=== PATIENT | male | born 1955 | race Caucasian/White ===

== ENCOUNTER 2019-02-24 17:00 | Observation (INO) | payer BC ==
[~2019-02-24] VITALS: Ht 188 cm; Wt 114.3 kg
--- NOTE | ~2019-02-24 | HP ---
PATIENT: SRIDHAR ECHEVARRIA MEDICAL RECORD: [id number] ACCOUNT: [id number] LOCATION:[address] : 53 ADMISSION DATE: 02/24/19 PCP: No PCP HISTORY AND PHYSICAL EXAMINATION DIAGNOSES: 1. Non-Q-wave myocardial infarction. 2. Coronary artery disease. 3. Bradycardia. 4. Hyperlipidemia. 5. History of deep vein thrombosis, on Coumadin, but noncompliant. HISTORY OF PRESENT ILLNESS: Mr. Echevarria is a gentleman who has no previous cardiac history and for the past 3 days he has been having episodes of chest discomfort, it got worse last night. He presented to [facility] today. Troponin is 8. He is pain free at this time. His EKG is with sinus bradycardia but no acute ST elevation. He is on a heparin drip and has been loaded with Plavix. PHYSICAL EXAMINATION: GENERAL APPEARANCE: Well nourished, well developed, appears stated age. Level of distress, comfortable. PSYCHIATRIC: Mental status, alert, normal affect. Orientation, oriented to time, place and person. EYES: Lids and conjunctiva, noninjected. No discharge, no pallor. ENT: Lips, teeth, gums, normal dentition. Oropharynx, no cyanosis, no pallor. NECK: Carotid arteries, bilateral normal upstroke, no bruits, no thrills. JUGULAR VEINS: No jugular venous pressure or distention. CERVICAL LYMPH NODES: Nontender, nonenlarged. THYROID: Not enlarged. Nontender. No nodules. LUNGS: Respiratory effort, unlabored. CHEST: Normal curvature. No thoracic deformity. No chest wall tenderness. Percussion, resonant. Auscultation, clear. No wheezes, no rales, no rhonchi. CARDIOVASCULAR: Precordial exam, nondisplaced. No heaves or pericardial thrills. Rate and rhythm, regular. Heart sounds, normal S1, normal S2. No S3, no gallop, no rub. Systolic murmur, not heard. Diastolic murmur, not heard. EXTREMITIES: No cyanosis, no edema. Peripheral pulses, full and equal in all extremities, except as noted. No bruits appreciated. ABDOMEN: Soft, nondistended. Normal aorta. No bruit. Nontender. No masses. Liver, nontender, no hepatomegaly. Spleen, nontender, no splenomegaly. MUSCULOSKELETAL: No joint tenderness. No joint swelling. No erythema. NEUROLOGICAL: Normal gait, normal strength, normal tone. SKIN: Warm and dry. OVERALL IMPRESSION: Non-Q-wave myocardial infarction. We will proceed with coronary angiography. Further care depends upon findings of the angiography. TRANSINT:[id number] Voice Confirmation ID: [id number] DOCUMENT ID: [id number] HISTORY AND PHYSICAL [id number] SRIDHAR ECHEVARRIA JEFFREY MD CC: [id number] DICTATION DATE: 02/24/191918 CRIME INVESTIGATOR SPECIAL AGENT: 02/24/19 2250 ADM IN [facility] [address] [id number]
--- NOTE | ~2019-02-24 | HEMODYNAMI ---
PATIENT:SRIDHAR SAGASTUME MEDICAL RECORD: [id number] : 53 LOCATION:[facility] [address].2124 ADMISSION DATE: 02/24/19 Generatedon:02/25/201910:36 Patient name: SRIDHAR SAGASTUME Patient #: [id number] SSN: : Date of study: 02/25/2019 Page: Of Hemodynamic Procedure Report Patient Data Patient Demographics Procedure consent was obtained First Name: SRIDHAR Gender: Male Last Name: MITESH : 1955 Patient #: [id number] Age: 63 year(s) Race: Unknown Additional ID: [id number] Contact details Address: [address] [address] State: [place] City: [place] Zip code: [address] Admission Admission Data Admission Date: 02/24/2019 Admission Time: 17:54 Room #: D.2124 Lab Results Lab Result Date: 02/25/2019 Lab Result Time: 0:00 Biochemistry Name Units Result Min Max BUN mg/dl 20 --(----)*- 7 18 Creatinine mg/dl 1.2 --(---*)-- 0.6 1.3 CBC Name Units Result Min Max Hemoglobin g/dl 13.9 --(*---)-- 13.5 17.5 Procedure Procedure Types Cath Procedure Diagnostic Procedure [facility] w/Coronaries Sedation Charges Moderate Sedation up to 15 minutes PCI Procedure Coronary Stent Coronary Stent Initial x2 Procedure Description Procedure Date Procedure Date: 02/25/2019 Procedure Start Time: 9:58 Procedure End Time: 10:30 Procedure Staff Name Function Jody Avila RT Monitor Aristeo Rios MD Performing Physician Mandie Kowalski RT Scrub Sherly Hardin RN Nurse Procedure Data Cath Procedure Fluoroscopy Diagnostic fluoroscopy Total fluoroscopy Time: time: 11.7 min 11.7 min Diagnostic fluoroscopy Total fluoroscopy dose: dose: 1821 mGy 1821 mGy Contrast Material Contrast Material Type Amount (ml) Isovue 300 180 Entry Location Entry Primary Successful Side Size Upsize Upsize Entry Closure Succes sful Closure Location (Fr) 1 (Fr) 2 (Fr) Remarks Device Remarks Femoral Right 5 Fr 6 Fr artery Short Estimated blood loss: 5 ml Diagnostic catheters Device Type Used For End Catheter Placement MULTIPACK Pigtail 5 Fr LV Angiography catheter MULTIPACK JL 4.0 5Fr Left Coronary catheter Angiography MULTIPACK 3DRC 5Fr Right Coronary catheter Angiography Procedure Complications No complications Procedure Medications Medication Administration Route Dosage 0.9% NaCl I.V. 100 ml/hr Oxygen etCO2 Nasal cannula 2 l/min Lidocaine 2% added to field 20 Heparin Flush Bag added to field 2 bags (1000units/500ml NS) Versed I.V. 2 mg Fentanyl I.V. 50 mcg Versed I.V. 2 mg Fentanyl I.V. 50 mcg Heparin Bolus I.V. 5000 units Integrilin (Bolus I.V. 10.7 ml 2mg/ml) Integrilin (Bolus 10.7 ml 2mg/ml) Plavix P.O. 75 mg Hemodynamics Rest HGB: 13.9 (g/dl) Heart Rate: 56 (bpm) Pressure Samples Time Site Value (mmHg) Purpose Heart Use Rate(bpm) 10:00 LV 126/40,36 Snapshot 64 Snapshots Pre Cath Intra NCS Post Cath Vital Signs Time Heart Resp SPO2 etCO2 NIBP (mmHg) Rhythm Pain Sedation Rate (ipm) (%) (mmHg) Status Level (bpm) 9:46:42 57 15 96 28.2 132/76(98) SB 0 (11) 10(A) , No pain 9:51:04 61 16 97 37.9 137/80(106) NSR 0 (11) 10(A) , No pain 9:55:25 62 17 98 18.6 127/81(100) NSR 0 (11) 10(A) , No pain 9:59:41 57 18 96 33.5 123/72(85) SB 0 (11) 10(A) , No pain 10:04:01 62 16 98 38.7 134/80(111) NSR 0 (11) 9(A) , No pain 10:08:23 60 16 98 29.8 129/91(108) NSR 0 (11) 9(A) , No pain 10:12:45 62 17 95 44.7 126/78(99) NSR 0 (11) 9(A) , No pain 10:17:05 61 18 96 46.9 127/68(104) NSR 0 (11) 9(A) , No pain 10:21:29 64 19 97 49.9 134/76(107) NSR 0 (11) 9(A) , No pain 10:27:09 58 18 98 48.4 123/67(97) SB 0 (11) 10(A) , No pain Medications Time Medication Route Dose Verified Delivered Reason Notes Effectiveness by by 9:49:55 0.9% NaCl I.V. 100 Aristeo Sherly used for ml/hr Gabriel Hardin certified income tax preparer 9:50:02 Oxygen etCO2 2 Aristeo Sherly used for Nasal l/min Gabriel Hardin procedure cannula RN 9:50:07 Lidocaine 2% added 20ml Aristeo Aristeo for local to vial Gabriel Rios MD anesthetic field 9:50:14 Heparin Flush added 2 Aristeo Aristeo used for Bag to bags Gabriel Rios MD procedure (1000units/500ml field NS) 9:53:11 Versed I.V. 2 mg Aristeo Sherly for sedation Gabriel Hardin RN 9:53:16 Fentanyl I.V. 50 Aristeo Sherly for sedation mcg Gabriel Hardin RN 9:59:58 Versed I.V. 2 mg Aristeo Sherly for sedation Gabriel Hardin RN 10:00:02 Fentanyl I.V. 50 Aristeo Sherly for sedation mcg Gabriel Hardin RN 10:04:34 Heparin Bolus I.V. 5000 Aristeo Sherly for verif ied units Gabriel Hardin anticoagulation with Dr. MARIELA Rios 10:09:46 Integrilin I.V. 10.7 Aristeo Sherly for waste d (Bolus 2mg/ml) ml Gabriel Hardin antiplatelet 9.3 mL RN therapy 10:22:57 Integrilin IC 10.7 Aristeo Aristeo for waste d (Bolus 2mg/ml) ml Gabriel Rios MD antiplatelet 9.3mL therapy 10:32:35 Plavix P.O. 75 mg Aristeo Sherly for Gabriel Hardin antiplatelet RN therapy Procedure Log Time Note 9:22:46 Diagnostic Cath status Elective 9:22:48 Sherly Hardin RN sent for patient. Start room use. 9:31:03 Time tracking: Regular hours (M-F 7:00 - 5:00) 9:31:08 Plan of Care:Hemodynamics will remain stable., Cardiac rhythm will remain stable., Comfort level will be maintained., Respiratory function will remain adequate., Patient/ family verbilizes understanding of procedure., Procedure tolerated without complication., Recovers from procedure without complications.. 9:40:16 Patient received from Med II to CCL 1 Alert and oriented. Tansferred to table in Supine position. 9:40:17 Correct patient and procedure confirmed by team. 9:40:17 Warm blankets applied, and xiomara hugger turned on for patient comfort. 9:40:19 Signed procedure consent form obtained from patient. 9:40:20 ECG and BP/O2 sat monitors applied to patient. 9:45:28 Vital chart was started 9:48:15 Baseline sample Acquired. 9:48:18 Rhythm: sinus rhythm 9:48:20 Full Disclosure recording started 9:48:23 H&P Date Dictated: 02/25/2019 New H&P dictated by physician.. 9:48:25 Pre-op teaching completed and patient verbalized understanding. 9:48:25 Pre-procedure instructions explained to patient. 9:48:26 Family in waiting room. 9:48:27 Patient NPO since Midnight. 9:48:30 Is the patient allergic to Iodine/contrast media? No. 9:48:31 Was the patient premedicated? No 9:48:32 Is patient on blood thinner?Yes 9:48:35 ACC The patient was administered the following blood thiners within the last 24 hours: Coumadin 9:48:37 Patient diabetic? No. 9:48:40 Previous problem with sedation/anesthesia? No ? 9:48:42 Snore? Yes 9:48:43 Sleep apnea? No 9:48:45 Opens mouth fully? Yes 9:48:45 Deviated septum? No 9:48:46 Sticks out tongue? Yes 9:48:48 Airway obstruction? No ? 9:48:52 Dentures? No ? 9:49:04 Pre procedure: right dorsailis pedis pulse 2+ Normal; easily identifiable; not easily obliterated 9:49:06 Pre procedure: left dorsailis pedis pulse 2+ Normal; easily identifiable; not easily obliterated 9:49:13 Patient pain scale 0/10 ?. 9:49:52 IV patent on arrival in right wrist with 0.9% NaCl at O. 9:49:55 0.9% NaCl 100 ml/hr I.V. was administered by Sherly Hardin RN; used for procedure; 9:49:56 Lab results completed and on chart. 9:50:02 Oxygen 2 l/min etCO2 Nasal cannula was administered by Sherly Hardin RN; used for procedure; 9:50:07 Lidocaine 2% 20ml vial added to field was administered by Aristeo Rios MD; for local anesthetic; 9:50:14 Heparin Flush Bag (1000units/500ml NS) 2 bags added to field was administered by Aristeo Rios MD; used for procedure; :52: Lab Result : Hemoglobin 13.9 g/dl 9:52: Lab Result : Creatinine 1.2 mg/dl 9:52: Lab Result : BUN 20 mg/dl 9:52:26 Lab results completed and on chart. 9:52:30 Right groin area was prepped with chlora-prep and draped in sterile fashion 9:52:31 Sharps counted by scrub and verified by R.N. 9:52:31 Alarms reviewed by R. N. 9:52:33 --------ALL STOP TIME OUT------ 9:52:33 Physician arrived 9:52:34 Final Timeout: patient, procedure, and site verified with staff and physician. All members of the team are in agreement. 9:52:36 Right groin site verified by team. 9:52:40 Maximum allowable Isovue 300 dose 300ml. Physician notified. (300ml for normal creatinines. For patients with creatinine of 1.7 or higher multiply weight(kg) x 5 divided by creatinine.) 9:52:45 Fire Safety Assessment: A--An alcohol-based skin anteseptic being used preoperatively., C--Open oxygen or nitrous oxide is being used., D--An ESU, laser, or fiber-optic light is being used. 9:52:49 Physical assessment completed. ASA score P 2 - A patient with mild systemic disease as per Aristeo Rios MD. 9:52:53 Sedation plan: IV Moderate Sedation Medication:Versed, Fentanyl 9:52:58 Use device set Femoral Dx 9:52:59 Bag Decanter (2002S) opened to sterile field. 9:52:59 ACIST Syringe (02925) opened to sterile field. 9:53:00 DIAGNOSTIC WIRE .035 260cm J wire (768100) opened to sterile field. 9:53:00 Medline Cath Pack ([id number]) opened to sterile field. 9:53:02 ACIST Manifold (46831) opened to sterile field. 9:53:02 ACIST Hand Control (13609) opened to sterile field. 9:53:03 Tegaderm 4 x 4 (1626W) opened to sterile field. 9:53:03 DIAGNOSTIC Multipack 5Fr catheter set (WD0142) opened to sterile field. 9:53:04 SHEATH 5FR [employer] (VMY742) opened to sterile field. 9:53:11 Versed 2 mg I.V. was administered by Sherly Hardin RN; for sedation; 9:53:16 Fentanyl 50 mcg I.V. was administered by Sherly Hardin RN; for sedation; 9:58:32 Procedure started. 9:58:35 Local anesthetic to right femoral artery with Lidocaine 2% by Aristeo Rios MD.INITIAL ACCESS ONLY 9:58:45 A 5 Fr sheath was inserted into the Right Femoral artery 9:59:45 A MULTIPACK Pigtail 5 Fr catheter was advanced over the wire and used for LV Angiography. 9:59:58 Versed 2 mg I.V. was administered by Sherly Hardin RN; for sedation; 10:00:02 Fentanyl 50 mcg I.V. was administered by Sherly Hardin RN; for sedation; 10:00:24 LV hemodynamics recorded. 10:00:25 LV gram done using MON 10:00:28 Injector settings: Ml/sec: 5, Volume: 15, 10:00:34 EF : 40 % 10:00:46 A MULTIPACK JL 4.0 5Fr catheter was advanced over the wire and used for Left Coronary Angiography. 10:01:26 LCA angiography performed. 10:01:29 Injector settings: Ml/sec: 3, Volume: 6, 10:02:17 Catheter removed. 10:02:33 A MULTIPACK 3DRC 5Fr catheter was advanced over the wire and used for Right Coronary Angiography. 10:03:01 RCA angiography performed. 10:03:09 Injector settings: Ml/sec: 3, Volume: 6, 10:03:41 Catheter removed. 10:03:42 Proceeding to intervention. 10:04:07 SHEATH 6FR [employer] (GKH537) opened to sterile field. 10:04:08 INFLATOR Merit BasixCompak (HS4126) opened to sterile field. 10:04:09 GUIDE 6FR XBLAD 4.0 catheter ([id number]) opened to sterile field. 10:04:10 CHOICE PT Extra Support 182cm wire ([id number]) opened to sterile field. 10:04:10 CHOICE PT Extra Support 182cm wire ([id number]) opened to sterile field. 10:04:34 Heparin Bolus 5000 units I.V. was administered by Sherly Hardin RN; for anticoagulation; verified with Dr. Rios 10:06:14 Sheath upsized to a 6 Fr Short. 10:06:20 6 Fr xblad 4 guide catheter was inserted over the wire 10:06:25 choice pt wire advanced. 10:07:38 Wire advanced across lesion. 10:09:19 additional choice pt extra support wire advanced 10:09:25 Wire removed. 10:09:46 Integrilin (Bolus 2mg/ml) 10.7 ml I.V. was administered by Sherly Hardin RN; for antiplatelet therapy; wasted 9.3 mL 10:11:50 The INTEGRITY RX 3.0 x 15 stent ([id number]) was advanced then removed because of failure to cross lesion 10:12:44 Inflate balloon Inflation number: 1 A EUPHORA 3.0 x 15 Balloon ([id number]) was prepped and advanced across the Prox LAD, then inflated to 13 ALANA for 0:10 (min:sec). 10:12:51 Balloon removed over the wire. 10:14:22 Place stent Inflation Number: 2 A INTEGRITY RX 3.0 x 15 stent ([id number]) was prepped and advanced across the Prox LAD. The stent was deployed at 15 ALANA for 0:10 (min:sec). 10:15:16 Stent catheter was removed intact over wire. 10:15:18 Wire removed. 10:15:19 Guide catheter removed. 10:15:27 CHOICE PT Extra Support J 300cm guide wire ([id number]) opened to sterile field. 10:15:39 GUIDE 6FR EBU 4.5 catheter ([id number]) opened to sterile field. 10:16:09 6 Fr ebu 4.5 guide catheter was inserted over the wire 10:17:35 choice pt extra support wire advanced. 10:18:49 Inflate balloon Inflation number: 1 A EMERGE OTW 1.5 x 20 balloon ([id number]) was prepped and advanced across the Prox CX, then inflated to 21 ALANA for 0:10 (min:sec). 10:19:18 Balloon removed over the wire. 10:20:57 Inflate balloon Inflation number: 2 A EUPHORA 3.0 x 30 Balloon ([id number]) was prepped and advanced across the Prox CX, then inflated to 11 LAANA for 0:10 (min:sec). 10:21:09 Inflation number: 3 The EUPHORA 3.0 x 30 Balloon ([id number]) was reinflated across the Prox CX, to 11 ALANA for 0:10 (min:sec). 10:22:52 Balloon removed over the wire. 10:22:57 Integrilin (Bolus 2mg/ml) 10.7 ml IC was administered by Aristeo Rios MD; for antiplatelet therapy; wasted 9.3mL 10:24:01 The INTEGRITY RX 3.0 x 30 stent ([id number]) was advanced then removed because of failure to cross lesion 10:25:18 Inflation number: 4 The EUPHORA 3.0 x 30 Balloon ([id number]) was reinflated across the Prox CX, to 17 ALANA for 0:10 (min:sec). 10:25:47 Inflation number: 5 The EUPHORA 3.0 x 30 Balloon ([id number]) was reinflated across the Prox CX, to 21 ALANA for 0:10 (min:sec). 10:26:15 Balloon removed over the wire. 10:28:35 Place stent Inflation Number: 6 A INTEGRITY RX 3.0 x 30 stent ([id number]) was prepped and advanced across the Prox CX. The stent was deployed at 21 ALANA for 0:10 (min:sec). 10:28:43 Wire removed. 10:28:43 Stent catheter was removed intact over wire. 10:28:44 Guide catheter removed. 10:28:55 EXOSEAL 6Fr (EX600) opened to sterile field. 10:29:27 Procedure ended.(Physican Out) 10::37 Fluoroscopy time 11.70 minutes. 10:: Fluoroscopy dose: 1821 mGy 10:: Flurop Dose total: 1821 10:29:45 Contrast amount:Isovue 300 180ml. 10:29:47 Sharps counted by scrub and verified by R.N. 10:29:50 Insertion/operative site no bleeding no hematoma. 10:29:52 Post-op/insertion site Right Femoral artery dressed using a 4 x 4 and Tegaderm. 10:29:57 Post procedure rhythm: unchanged. 10::59 Estimated blood loss: 5 ml 10:30:01 Patient needs reinforcement of post procedure teaching. 10:30:01 Post procedure instruction explained to patient.Patient verbalizes understanding. 10:30:15 Procedure type changed to Cath procedure, Diagnostic procedure, LHC, LHC w/Coronaries, Sedation Charges, Moderate Sedation up to 15 minutes, PCI procedure, Coronary Stent, Coronary Stent Initial x2 10:30:17 Procedure and supply charges have been captured, reviewed, submitted and are correct. 10:30:21 Procedure Complication : No complications 10:30:24 See physician's report for complete and final results. 10:30:24 Vital chart was stopped 10::47 Report given to [facility]. 10::50 Patient transfered to [facility] with Stretcher. 10:30:52 Full Disclosure recording stopped 10::52 Procedure ended. 10:31:47 ACC-PCI Only Patient was given prescriptions, or instructed by Aristeo Rios MD to start/continue the following medications upon discharge: Plavix 10:31:49 End room use (Document Last) 10:32:35 Plavix 75 mg P.O. was administered by Sherly Hardin RN; for antiplatelet therapy; Intervention Summary Intervention Notes Time ActionType Lesion and Equipment Action# Pressure Duration Attributes Used 10:11:50 Discard INTEGRITY RX Stent 3.0 x 15 stent ([id number]) 10:12:44 Inflate Prox LAD EUPHORA 3.0 1 13 00:10 balloon x 15 Balloon ([id number]) 10:14:22 Place stent Prox LAD INTEGRITY RX 2 15 00:10 3.0 x 15 stent ([id number]) 10:18:49 Inflate Prox CX EMERGE OTW 1 21 00:10 balloon 1.5 x 20 balloon ([id number]) 10:20:57 Inflate Prox CX EUPHORA 3.0 2 11 00:10 balloon x 30 Balloon ([id number]) 10:21:09 Reinflate Prox CX EUPHORA 3.0 3 11 00:10 balloon x 30 Balloon ([id number]) 10:24:01 Discard INTEGRITY RX Stent 3.0 x 30 stent ([id number]) 10:25:18 Reinflate Prox CX EUPHORA 3.0 4 17 00:10 balloon x 30 Balloon ([id number]) 10:25:47 Reinflate Prox CX EUPHORA 3.0 5 21 00:10 balloon x 30 Balloon ([id number]) 10:28:35 Place stent Prox CX INTEGRITY RX 6 21 00:10 3.0 x 30 stent ([id number]) Device Usage Item Name Manufacture Quantity Catalog Number Hospital Part Current Min imal Lot# / Charge Number Stock Stock Serial# Code ACIST Acist 1 36972 517131 316658 571741 20 Syringe Medical (99078) Systems Inc Bag Decanter Microtek 1 2001S 108074 10185 534406 5 () Medical Inc. Medline Cath Medline 1 [id number] 586869 00798 478875 5 Pack ([id number]) DIAGNOSTIC St Jorge A 1 246914 585239 637542 420433 30 WIRE .035 260cm J wire (305782) ACIST Hand Acist 1 23992 044823 438521 998825 5 Control Medical (14582) Systems Inc ACIST Acist 1 17771 854637 769262 580895 5 Manifold Medical (11392) Systems Inc DIAGNOSTIC Cardinal 1 GB8685 030435 03973 891981 30 Multipack Health 5Fr catheter set (VL4426) Tegaderm 4 x 3M 1 1626W 979000 026501 622417 5 4 (1626W) SHEATH 5FR Terumo 1 TEA401 645034 314658 978369 5 [employer] (UXY868) MULTIPACK Cardinal 1 142857 5 Pigtail 5 Fr Health catheter MULTIPACK JL Cardinal 1 971226 5 4.0 5Fr Health catheter MULTIPACK Cardinal 1 905150 5 3DRC 5Fr Health catheter SHEATH 6FR Terumo 1 HDI277 776835 761994 705170 40 [employer] (KMM392) INFLATOR Merit 1 KO1305 057405 565458 245870 15 [facility] Medical BasixCompak (WI4774) GUIDE 6FR Cardinal 1 [id number] 656670 592365 791471 3 XBLAD 4.0 Health catheter (67864136) CHOICE PT Tobias 2 [id number] 257814 196400 115718 5 Extra Scientific Support 182cm wire ([id number]) INTEGRITY RX Medtronic 1 [id number] 883482 112373 532060 5 [id number] 3.0 x 15 stent ([id number]) EUPHORA 3.0 Medtronic 1 [id number] 353979 879278 777891 5 [id number] x 15 Balloon ([id number]) CHOICE PT Tobias 1 [id number] 384007 718016 905555 5 Extra Scientific Support J 300cm guide wire ([id number]) GUIDE 6FR Medtronic 1 [id number] 064412 26435 190822 0 EBU 4.5 catheter ([id number]) EMERGE OTW Tobias 1 [id number] 643425 952317 659301 5 [id number] 1.5 x 20 Scientific balloon ([id number]) EUPHORA 3.0 Medtronic 1 [id number] 792562 431305 591104 5 [id number] x 30 Balloon ([id number]) INTEGRITY RX Medtronic 1 [id number] 153188 521231 225312 5 [id number] 3.0 x 30 stent ([id number]) EXOSEAL 6Fr Cardinal 1 EX600 076715 298149 871607 10 (EX600) Health Signature Audit [place] Stage Time Signature Unsigned Intra-Procedure 02/25/2019 Jody Avila RT(R) 10:35:05 AM RT(R) 02/25/2019 10:35:39 AM Intra-Procedure 02/25/2019 Jody Avila 10:36:08 AM RT(R) Signatures Monitor : Jody Avila RT Signature : Date : Time : [id number] [place] [address]
--- NOTE | ~2019-02-24 | OP ---
PATIENT NAME: SRIDHAR SAGASTUME MEDICAL RECORD: [id number] :53 LOCATION:D.M2 D.2124 ADMISSION DATE:02/24/19 SURGEON: YAZMIN NDIAYE MD DATE OF OPERATION: 02/25/2019 PROCEDURES: 1. PTCA stent LAD. 2. PTCA stent left circumflex. 3. Left heart catheterization. 4. Selective coronary angiography. 5. Left ventriculogram. INDICATION: Anterior myocardial infarction. DESCRIPTION OF PROCEDURE: After informed consent was obtained and after a detailed description of risks, benefits as well as alternative therapies, the patient elected to proceed with angiogram and angioplasty. The right femoral area was prepped and draped in normal sterile fashion. Right femoral artery was cannulated via modified Seldinger technique with placement of 6-Latvian sheath. All catheters exchanged through this sheath. FINDINGS: Left ventriculogram was performed in standard 30-degree MON view reveals global hypokinesis, especially anteroapically, ejection fraction in the 40% range. SELECTIVE CORONARY ANGIOGRAPHY: 1. Left main is with no significant angiographic disease. 2. Left anterior descending has a 95% stenosis at the ostium. 3. The left circumflex is closed. 4. Right coronary artery is small, nondominant. PTCA STENT OF THE LAD: The stent used was a 3.0 x 15 mm Integrity. Result was 0% residual stenosis. PTCA STENT OF THE LEFT CIRCUMFLEX: We were able to traverse the total occlusion with a 1.5 and 3.0 balloon. Stenting this with a 3.0 x 30 Integrity. Result was 0% residual stenosis. OVERALL IMPRESSION: Successful PTCA stent of the LAD and circumflex going from 99% and 100% initial stenosis to 0% residual stenosis. TRANSINT:[id number] Voice Confirmation ID: [id number] DOCUMENT ID: [id number] YAZMIN NDIAYE MD CC: [id number] DICTATION DATE: 02/25/19 1039 SOURCING ASSISTANT: 02/25/19 1114 [place] [address]
--- NOTE | ~2019-02-24 | DS ---
PATIENT:SRIDHAR ECHEVARRIA :53 MEDICAL RECORD: [id number] DISCHARGE SUMMARY ADMISSION DATE: 02/24/19 DISCHARGE DATE: 02/26/19 DISCHARGE DIAGNOSES: 1. Acute anterior myocardial infarction. 2. Percutaneous transluminal coronary angioplasty stent left anterior descending and circumflex this admission. 3. Hyperlipidemia. 4. Bradycardia. HOSPITAL COURSE: Mr. Echevarria presents with an acute anterior myocardial infarction, underwent thrombolytic therapy in [place] was transferred here, underwent PTCA stent of his LAD and circumflex, discharged home with the addition of aspirin and Plavix to his medical regimen. He is already on atorvastatin. No beta-lennie was undertaken secondary to resting bradycardia. He will follow up with [facility] in 1 month. TRANSINT:[id number] Voice Confirmation ID: [id number] DOCUMENT ID: [id number] YAZMIN NDIAYE MD CC: [id number] DICTATION DATE: 02/26/19839 JOINT SEALER: 02/26/192049 DIS IN 02/26/19 [facility] [address] [id number]
[2019-02-24] MEDS ORDERED: LIPITOR10 MG PO (17:07)
[2019-02-24] MEDS ORDERED: BAYER CHEWABLE81 MG PO (17:07)
[2019-02-24] MEDS ORDERED: COUMADIN5 MG PO (17:08)
--- NOTE | 2019-02-24 17:35 | NUR ---
WILL ADMINISTER ORDERED HEPARIN INFUSION ONCE ORDERED LABS ARE RESULTED PER EDP.
[2019-02-24 17:37] LABS: BASOPHILS 0.2 % (0-2); EOSINOPHILS 1.7 % (0-7); HEMATOCRIT 42.4 % (42.0-54.0); HEMOGLOBIN 14.6 g/dL (13.5-17.5); IMMATURE GRANULOCYTES 0.2 % (0-5); LYMPHOCYTES 21.5 % (15-50); MCHC 34.4 g/dL (31.0-37.0); MEAN PLATELET VOLUME 11.1 fL (7.4-10.4); MONOCYTES 6.1 % (2-11); NEUTROPHILS 70.3 % (40-80); PLATELET COUNT 154 10x3/uL (130-400); RBC 4.71 10x6/uL (4.20-6.10)
[2019-02-24 17:59] LABS: ALBUMIN 3.6 g/dL (3.4-5.0); ALKALINE PHOSPHATASE 53 U/L (46-116); ALT (SGPT) 55 U/L (10-68); BILIRUBIN - TOTAL 0.53 mg/dL (0.2-1.3); CALC OSMOLALITY 281 mosm/kg (275-300); CARBON DIOXIDE 29.5 mmol/L (21.0-32.0); CHLORIDE - SERUM 102 mmol/L (98-107); CREATININE - SERUM 1.2 mg/dL (0.6-1.3); GLUCOSE 117 mg/dL (74-106); POTASSIUM - SERUM 4.6 mmol/L (3.5-5.1); PROTEIN - SERUM 7.5 g/dL (6.4-8.2); SODIUM 139 mmol/L (136-145); UREA NITROGEN 20 mg/dL (7-18); eGFR NON AFRICAN AMERICAN 65 mL/min (90-120)
--- NOTE | 2019-02-24 17:59 | NUR ---
PT SITTING IN HIGH LINARES'S, RESPIRATIONS EVEN AND UNLABORED. NO SIGNS OF DISTRESS. CALL LIGHT IN REACH, WILL CONTINUE TO MONITOR.
--- NOTE | 2019-02-24 18:07 | NUR ---
COAGULATION LABS REMAIN PENDING AT THIS TIME.
[2019-02-24 18:15] LABS: CKMB 164.9 U/L (0.0-3.6); MAGNESIUM - SERUM 2.1 mg/dL (1.8-2.4)
[2019-02-24 18:16] LABS: CREATINE KINASE 857 UL (21-232)
[2019-02-24 18:19] LABS: TROPONIN-I 7.932 ng/mL (0.000-0.060)
--- NOTE | 2019-02-24 18:19 | NUR ---
NOTIFIED BY LAB OF CRITICAL TROPONIN OF 7.932. EDP NOTIFIED.
[2019-02-24 18:27] LABS: INR 1.15 (0.85-1.17); PROTIME 14.2 SECONDS (11.6-15.0)
[2019-02-24 18:28] LABS: APTT 74.1 SECONDS (22.8-39.4); D-DIMER-QUANTITATIVE 0.3 ug/mLFEU (0.20-0.54)
--- NOTE | 2019-02-24 18:45 | NUR ---
ROOM 2124 ASSIGNED AT 1830, ATTEMPTED TO CALL REPORT AT THIS TIME. TOLD THERE WAS NOT A NURSE AVAILABLE TO TAKE REPORT AT THIS TIME.
--- NOTE | 2019-02-24 19:06 | NUR ---
HAND-OFF REPORT GIVEN TO MARIELA ZUÑIGA
--- NOTE | 2019-02-24 19:10 | NUR ---
REPERT RECIEVED FROM MARIELA GARCIA IN ER.
--- NOTE | 2019-02-24 20:10 | NUR ---
PT ARRIVED TO UNIT VIA WHEELCHAIR ALERT AND ORIENTED. PT DENIES ANY PAIN AT THIS TIME. RR EVEN AD UNLABORED. PT ON 2LNC. HEPERIN DRIP AT 10ML/HR. PT RUNNING SINUS DORI 52 ON TELEMETRY. BED LOW CALL LIGHT WITHIN REACH. WILL CONTINUE TO MONITOR.
[2019-02-24 20:56] VITALS: BP 136/71
--- NOTE | 2019-02-24 23:11 | NUR ---
I have reviewed this patient and I concur with the Shift Assessment completed by the Licensed Practical Nurse today this shift.
[2019-02-25] VITALS (8 sets, daily range): BP systolic 110–148; BP diastolic 58–74; Ht 188 cm; Wt 114.3 kg
--- NOTE | 2019-02-25 02:27 | NUR ---
PT RONDA CALLED IN AND ELEVATED. PT COMPLAINING OF 4/10 CHEST PAIN PRN PAIN MED GIVEN. STAT LAB FOR APTT OREDERED. PT LAYING ON BACK ALERT AND ORIENTED. 2L O2 NC. BED LOW CALL LIGHT WITHIN REACH. WILL CONTINUE TO MONITOR
[2019-02-25 02:45] LABS: BASOPHILS 0.2 % (0-2); EOSINOPHILS 2.2 % (0-7); HEMATOCRIT 40.6 % (42.0-54.0); HEMOGLOBIN 13.9 g/dL (13.5-17.5); IMMATURE GRANULOCYTES 0.2 % (0-5); MCH 30.8 pg (26.0-34.0); MCHC 34.2 g/dL (31.0-37.0); MEAN PLATELET VOLUME 10.9 fL (7.4-10.4); MONOCYTES 8.8 % (2-11); NEUTROPHILS 66.6 % (40-80); PLATELET COUNT 141 10x3/uL (130-400); RBC 4.51 10x6/uL (4.20-6.10); RDW 13.2 % (11.5-14.5); WBC 10.3 10x3/uL (4.8-10.8)
--- NOTE | 2019-02-25 02:54 | NUR ---
DR. NDIAYE PAGEChristi AND INFORMED OF PT'S ELEVATED TRIPONIN. WILL CONTINUE TO MONITOR.
[2019-02-25 02:56] LABS: INR 1.11 (0.85-1.17); PROTIME 13.8 SECONDS (11.6-15.0)
[2019-02-25 03:15] LABS: ANION GAP 13.5 mmol/L (8-16); CALCIUM 8.5 mg/dL (8.5-10.1); CARBON DIOXIDE 26.6 mmol/L (21.0-32.0); CREATININE - SERUM 1.2 mg/dL (0.6-1.3); POTASSIUM - SERUM 4.1 mmol/L (3.5-5.1); TROPONIN-I 15.131 ng/mL (0.000-0.060)
--- NOTE | 2019-02-25 07:30 | NUR ---
AM ROUNDS COMPLETED. INTRODUCED MYSELF TO PT PRIMARY RN FOR TODAYS SHIFT. SHIFT ASSESSMENT COMPLETED. PT IS NPO FOR HEART CATH TODAY AND VERBALIZED UNDERSTANDING. CONSENTS ARE SIGNED AND IN CHART. PT HAS NOT HAD A SHOWER OR BEEN CLEANED FOR PROCEDURE TEACHING PROVIDED AND SUPPLIES AND HE IS CAPABLE OF DOING IT HIMSELF. PT HAS A HEPARIN DRIP INFUSING TO HIS R.WRIST @12ML/HR. PT ALSO HAS A L.HAND PIV WITH NS @75ML/HR. TELEMETRY RUNNING SINUS RHYTHM @62 BPM. PT DENIES ANY CURRENT CHEST PAIN. NO CURRENT NEEDS. WILL AWAIT TO PRE-OP AND CPOC.
--- NOTE | 2019-02-25 09:31 | NUR ---
CATH TEAM CALLED TO PRE-OP PT. ALL PRE-OP MEDICATIONS GIVEN AND PT READY TO GO WAITING QUIETLY IN BED. NO FURTHER NEEDS.
--- NOTE | 2019-02-25 09:38 | NUR ---
PT LEAVING UNIT NOW FOR GUIDE ESCORT PROCEDURE. NO CURRENT NEEDS. REMOVED TELEMETRY AND NOTIFIED [employer].
--- NOTE | 2019-02-25 11:16 | NUR ---
PT BACK FROM DIRECTOR WRITING EASY TO AROUSE BUT RESTING QUIETLY LYING FLAT IN BED. VSS AND BEING MONITERED PER POST PROCEDURE PROTOCOL. PT HAS A DRSG TO HIS R.GROIN CDI NO S/S OF HEMATOMA OR BLEEDING NOTED. PERIPHERAL PULSES INTACT. NS INFUSING VIA L.HAND PIV @100ML/HR ORDERED. TELEMETRY BACK IN PLACE AND RUNNING SINUS BRADYCARDIA @59BPM. PT VERBALIZED UNDERSTANDING TO REMAIN FLAT X4HRS AND DENIES ANY CURRENT PAIN OR NEEDS AT THIS TIME. CL IN REACH, BED IN LOWEST, SIDE RAILS X2. WILL CTM.
--- NOTE | 2019-02-25 11:32 | NUR ---
PAPITO JONESG REMAINS CDI NO S/S OF BLEEDING OR HEMATOMA NOTED. VSS AND STILL BEING MONITERED PER POST PROCEDURE POLICY. PT REMAINS LAYING FLAT AND DENIES ANY CURRENT PAIN OR NEEDS. CL IN REACH. WILL CTM.
--- NOTE | 2019-02-25 14:06 | NUR ---
ASSISTED PT UP IN BED 4 HR FLAT LAY IS COMPLETED. R.MARTA DRSG REMAINS CDI NO S/S OF HEMATOMA OR BLEEDING NOTED. VSS THROUGHOUT ENTIRE MONITERING. PT SITTING UP TO EAT SOME LUNCH. PT DENIES ANY CURRENT PAIN OR NEEDS AT THIS TIME. WILL CTM.
--- NOTE | 2019-02-25 16:57 | NUR ---
PT SITTING UP IN BED RESTING QUIETLY WAITING ON DINNER. PT STATES HE IS FEELING GREAT OVERALL AND DENIES ANY CHEST PAIN OR ISSUES. RR NONLABORED ON RA. PAPITO JONESG REMAINS CDI NO S/S OF HEMATOMA NOTED. NO FURTHER NEEDS AT THIS TIME. CL IN REACH, BED IN LOWEST, SIDE RAILS X2. WILL CTM.
--- NOTE | 2019-02-25 17:54 | NUR ---
PT FINISHED DINNER AND ONLY ATE ABOUT 20% PT STATES HE IS JUST NOT VERY HUNGRY. PT STATES HE IS FEELING PRETTY GOOD OVERALL AND JUST WANTS TO CONTINUE RESTING. NO FURTHER NEEDS. WILL CTM.
--- NOTE | 2019-02-25 19:11 | NUR ---
RECIEVED UP IN BED WITH EYES OPEN AND TV ON. ALERT AND ORIENTED X4. DSG TO RIGHT GROIN CDI. IV TO LEFT HAND WITH NS @ 100CC/HR. AND IV TO RIGHT WRIST SL.. TELEMETRY IN PLACE. DENIES ANY NEEDS.
[2019-02-26 00:01] VITALS: BP 113/63
[2019-02-26 04:00] VITALS: BP 110/55
--- NOTE | 2019-02-26 07:24 | NUR ---
AM ROUNDS COMPLETED. INTRODUCED MYSELF TO PT PRIMARY RN FOR TODAYS SHIFT. PT IS A&O SITTING UP IN BED RESTING QUIETLY. PT STATES HE HAD A GOOD NIGHT AND IS FEELING GREAT TODAY AND HOPING TO BE DISCHARGED. WILL DISCUSS WITH PT DENIES ANY CURRENT PAIN OR NEEDS AT THIS TIME. CL IN REACH, BED IN LOWEST, SIDE RAILS X2. WILL CPOC.
[2019-02-26 08:34] VITALS: BP 116/68
[2019-02-26] MEDS ORDERED: PLAVIX75 MG PO (09:38)
--- NOTE | 2019-02-26 10:01 | NUR ---
PT IS GOING TO BE DISCHARGED AND DISCUSSED WITH DISEASE PROCESS AND CARDIAC CATH FINDINGS. D/C PTS L.HAND PIV WITH CATHETER TIP FULLY INTACT. ALSO D/C R.WRIST PIV WITH CATHETER TIP FULLY INTACT. PT STATES HIS BROTHER IS ON HIS WAY FROM [place]. PT DENIES ANY CURRENT PAIN OR NEEDS. WILL BEGIN DISCHARGE PAPERS AND CPOC.
--- NOTE | 2019-02-26 11:43 | NUR ---
DISCHARGE TEACHING PROVIDED AND PAPERS SIGNED. PT VERBALIZED UNDERSTANDING AND DENIES ANY QUESTIONS OR CONCERNS. ALL BELONGINGS COLLECTED. PT SITTING UP IN BED RESTING QUIETLY WAITING ON HIS RIDE. CL IN REACH, WILL CTM.
--- NOTE | 2019-02-26 12:47 | NUR ---
PTS BROTHER FINALLY HERE TO TAKE HIM HOME. NO FURTHER NEEDS. D/C TELEMETRY AND RETURNED TO [employer]. PT NOW LEAVING.
--- NOTE | 2019-02-27 09:33 | MORECARE ---
CASE MANAGEMENT DISCHARGE SUMMARY PATIENT: SRIDHAR SAGASTUME UNIT: [id number] ADM DATE: 02/24/19 AGE: 63 : 53 SEX: M ROOM/BED: D.2124 AUTHOR: PHI SALCIDO PHYSICIAN: REFERRING PHYSICIAN: YAZMIN NDIAYE MD DATE OF SERVICE: 02/27/19 Discharge Plan Patient Name: SRIDHAR SAGASTUME [facility] [facility] 1955 Planned Disposition: Home Anticipated Discharge Date: 02/26/19 Discharge Date: 02/26/2019 Expected LOS: 2 Initial Reviewer: [email or web address] Initial Review Date: 02/27/2019 Generated: 02/27/19 10:32 am Patient Name: SRIDHAR SAGASTUME Page [id number] at 0933 All edits/amendments must be made on the electronic document DICTATION DATE: 02/27/19931 SOCIAL SCIENCE MANAGER: MARTELL 02/27/19931 RPT#: [id number] DC DATE:02/26/19 STATUS: DIS IN [facility] [address] [place] [address] END OF REPORT
== END 2019-02-26 12:48 | disposition home or self-care (01) ==
LOC: D.ER 17:00 → OBSVTIME 17:54 → D.EDHOLD 17:54 → D.M2 18:30
PROVIDERS: Family Medicine; ADMIT Internal Medicine Interventional Cardiology; ATTEND Internal Medicine Interventional Cardiology
DX: I21.4 Non-ST elevation (NSTEMI) myocardial infarction (principal); I25.10 Atherosclerotic heart disease of native coronary artery without angina pectoris; Z86.718 Personal history of other venous thrombosis and embolism; Z79.01 Long term (current) use of anticoagulants; Z91.14 Patient's other noncompliance with medication regimen; E78.5 Hyperlipidemia, unspecified; R00.1 Bradycardia, unspecified